=== PATIENT | male | born 1945 | race Caucasian/White ===

== ENCOUNTER 2017-08-04 21:06 | Inpatient (IN) ==
[2017-08-04] MEDS ORDERED: fentaNYL 100 MCG/2 ML VIAL IV STA (21:32)
[2017-08-04] MEDS ORDERED: ONDANSETRON 4 MG/2 ML VIAL IV STA (21:32)
[2017-08-04] MEDS ORDERED: ONDANSETRON 4 MG/2 ML VIAL IV PRN (22:58)
[2017-08-04] MEDS ORDERED: KETOROLAC 10 MG TABLET PO PRN (23:37)
[2017-08-04] MEDS ORDERED: fentaNYL 100 MCG/2 ML VIAL IV PRN (23:37)
[2017-08-04] MEDS ORDERED: tiZANidine 4 MG TABLET PO PRN (23:37)
[2017-08-05] MEDS: SODIUM CHLORIDE 0.9% 1,000 ML IV SCH ×2 (01:14→18:36)
[2017-08-05] MEDS: LEVOFLOXACIN INJ 500 MG in PREMIX 1 EACH IV SCH (01:15)
[2017-08-05 04:42] LABS: Basophils % 0.8 % (0.0-0.8); Eosinophils # 0.3 10*3/uL (0.0-0.87); Eosinophils % 4.9 % (0.00-10.9); Hematocrit 26.5 VOL% (42.0-52.0); Immature Granulocytes % 0.4 %; Immature Granulocytes Absolute 0.02 #; Lymphocytes # 1.4 10*3/uL (1.4-4.0); Lymphocytes % 26.8 % (21.2-54.2); Mean Corpuscular HGB Conc 29.4 GM/DL (32-36); Mean Corpuscular Hemoglobin 22 PG (27-34); Mean Corpuscular Volume 75.7 FL (87-102); Monocytes # 0.5 10*3/uL (0.11-0.8); Monocytes % 10.2 % (1.7-12.7); Neutrophils % 56.9 % (38.7-73.9); Platelet Count 207 T/CUMM (130-400); Red Cell Distribution Width 16.2 % (9.3-17.3); White Blood Count 5.3 T/CUMM (4-12)
[2017-08-05 04:50] LABS: Hemoglobin 7.8 GM/DL (14.0-18.0)
[2017-08-05 05:12] LABS: Hypochromasia 1+; Ovalocytes Slight; Platelet Estimate Adequate
[2017-08-05 05:22] LABS: Albumin 2.9 G/DL (3.4-5.0); Bilirubin,Total 0.5 MG/DL (0.2-1.0); Calcium 8.2 MG/DL (8.5-10.1); Osmolality,Calculated 286.8 MOS/KG (273-304); Potassium 4.1 MMOL/L (3.5-5.1); Total Protein 5.8 G/DL (6.4-8.3)
[2017-08-05 05:24] LABS: Ferritin 6.6 ng/ml (26-388); Risk Ratio 1.93
[2017-08-05 05:33] LABS: Folate 19.2 NG/ML (5.4-24.0); Vitamin B12 427 PG/ML (211-911)
[2017-08-05 06:28] LABS: Sedimentation Rate-Westergren 55 MM/HR (0-20)
[2017-08-05] MEDS: PANTOPRAZOLE 40 MG TABLET PO SCH (10:30)
[2017-08-05] MEDS: ATORVASTATIN 40 MG TABLET PO SCH (10:30)
[2017-08-05 10:55] LABS: Hemoglobin A1 (Alkaline) 97.7 % (96.5-98.5); Hemoglobin A2 (Alkaline) 2.3 % (1.5-3.5)
[2017-08-05] MEDS: HYDROmorphone 2 MG/1 ML VIAL IV PRN ×2 (16:52→21:11)
[2017-08-05] MEDS: ZALEPLON 5 MG CAPSULE PO PRN (21:12)
[2017-08-06] MEDS: LEVOFLOXACIN INJ 500 MG in PREMIX 1 EACH IV SCH ×2 (00:07→23:12)
[2017-08-06] MEDS: HYDROmorphone 2 MG/1 ML VIAL IV PRN ×2 (01:21→20:49)
[2017-08-06] MEDS: hydrALAZINE 20 MG/1 ML VIAL IV PRN ×2 (04:31→21:19)
[2017-08-06 05:16] LABS: Basophils % 0.4 % (0.0-0.8); Eosinophils # 0.3 10*3/uL (0.0-0.87); Eosinophils % 3.8 % (0.00-10.9); Hematocrit 27.9 VOL% (42.0-52.0); Hemoglobin 8.2 GM/DL (14.0-18.0); Immature Granulocytes % 0.4 %; Immature Granulocytes Absolute 0.03 #; Lymphocytes # 1.3 10*3/uL (1.4-4.0); Lymphocytes % 18.5 % (21.2-54.2); Mean Corpuscular HGB Conc 29.4 GM/DL (32-36); Mean Corpuscular Hemoglobin 22 PG (27-34); Mean Corpuscular Volume 75.6 FL (87-102); Mean Platelet Volume 8.8 FL (9.6-12.0); Monocytes # 0.6 10*3/uL (0.11-0.8); Monocytes % 7.9 % (1.7-12.7); Neutrophils # 4.9 10*3/uL (1.4-7.4); Platelet Count 237 T/CUMM (130-400); Red Blood Count 3.69 MC/CUMM (3.8-5.5); Red Cell Distribution Width 16.1 % (9.3-17.3); White Blood Count 7.1 T/CUMM (4-12)
[2017-08-06 06:03] LABS: Albumin 3.1 G/DL (3.4-5.0); Bilirubin,Total 0.7 MG/DL (0.2-1.0); Calcium 8.1 MG/DL (8.5-10.1); Osmolality,Calculated 283.1 MOS/KG (273-304); Potassium 3.9 MMOL/L (3.5-5.1); Total Protein 6.2 G/DL (6.4-8.3)
[2017-08-06] MEDS: ATORVASTATIN 40 MG TABLET PO SCH (09:26)
[2017-08-06] MEDS: PANTOPRAZOLE 40 MG TABLET PO SCH (09:27)
[2017-08-06] MEDS: SODIUM CHLORIDE 0.9% 1,000 ML IV SCH ×3 (09:27→21:20)
[2017-08-06] MEDS: ZALEPLON 5 MG CAPSULE PO PRN (20:49)
[2017-08-07] MEDS: ATORVASTATIN 40 MG TABLET PO SCH (08:39)
[2017-08-07] MEDS: PANTOPRAZOLE 40 MG TABLET PO SCH (08:39)
[2017-08-07] MEDS: hydrALAZINE 20 MG/1 ML VIAL IV PRN ×2 (08:40→16:59)
[2017-08-07] MEDS: SODIUM CHLORIDE 0.9% 1,000 ML IV SCH ×2 (12:00→19:34)
[2017-08-07] MEDS: amLODIPine 5 MG TABLET PO SCH (16:57)
[2017-08-07] MEDS: HYDROmorphone 2 MG/1 ML VIAL IV PRN (19:52)
[2017-08-08] MEDS: LEVOFLOXACIN INJ 500 MG in PREMIX 1 EACH IV SCH (01:40)
[2017-08-08] MEDS: SODIUM CHLORIDE 0.9% 1,000 ML IV SCH ×3 (02:38→21:50)
[2017-08-08 05:31] LABS: Basophils % 0.4 % (0.0-0.8); Eosinophils # 0.3 10*3/uL (0.0-0.87); Eosinophils % 4.3 % (0.00-10.9); Hematocrit 27.2 VOL% (42.0-52.0); Hemoglobin 8.3 GM/DL (14.0-18.0); Immature Granulocytes % 0.6 %; Immature Granulocytes Absolute 0.04 #; Lymphocytes # 1.2 10*3/uL (1.4-4.0); Lymphocytes % 17.8 % (21.2-54.2); Mean Corpuscular HGB Conc 30.5 GM/DL (32-36); Mean Corpuscular Hemoglobin 22 PG (27-34); Mean Corpuscular Volume 72.9 FL (87-102); Monocytes # 0.7 10*3/uL (0.11-0.8); Neutrophils # 4.5 10*3/uL (1.4-7.4); Neutrophils % 65.9 % (38.7-73.9); Platelet Count 200 T/CUMM (130-400); Red Blood Count 3.73 MC/CUMM (3.8-5.5); Red Cell Distribution Width 16.7 % (9.3-17.3); White Blood Count 6.8 T/CUMM (4-12)
[2017-08-08 06:02] LABS: Calcium 8.1 MG/DL (8.5-10.1); Osmolality,Calculated 278.3 MOS/KG (273-304); Potassium 3.8 MMOL/L (3.5-5.1)
[2017-08-08] MEDS: ATORVASTATIN 40 MG TABLET PO SCH (08:43)
[2017-08-08] MEDS: PANTOPRAZOLE 40 MG TABLET PO SCH ×3 (08:44→21:23)
[2017-08-08] MEDS: amLODIPine 5 MG TABLET PO SCH ×3 (08:44→21:23)
[2017-08-08] MEDS ORDERED: LIDOCAINE 100 MG/5 ML SYRINGE ONE (12:00)
[2017-08-08] MEDS ORDERED: PROPOFOL 200 MG/20 ML VIAL IV ONE (12:00)
[2017-08-09] MEDS: LEVOFLOXACIN INJ 500 MG in PREMIX 1 EACH IV SCH (01:19)
[2017-08-09] MEDS: hydrALAZINE 20 MG/1 ML VIAL IV PRN (02:00)
[2017-08-09 05:01] LABS: Basophils % 0.4 % (0.0-0.8); Eosinophils # 0.2 10*3/uL (0.0-0.87); Eosinophils % 2.6 % (0.00-10.9); Hematocrit 28.7 VOL% (42.0-52.0); Hemoglobin 8.7 GM/DL (14.0-18.0); Immature Granulocytes % 0.9 %; Immature Granulocytes Absolute 0.07 #; Lymphocytes # 0.7 10*3/uL (1.4-4.0); Mean Corpuscular HGB Conc 30.3 GM/DL (32-36); Mean Corpuscular Hemoglobin 22 PG (27-34); Mean Corpuscular Volume 71.8 FL (87-102); Mean Platelet Volume 8.8 FL (9.6-12.0); Monocytes # 0.7 10*3/uL (0.11-0.8); Monocytes % 8.9 % (1.7-12.7); Neutrophils # 5.7 10*3/uL (1.4-7.4); Neutrophils % 77.2 % (38.7-73.9); Platelet Count 223 T/CUMM (130-400); Red Cell Distribution Width 16.8 % (9.3-17.3); White Blood Count 7.4 T/CUMM (4-12)
[2017-08-09] MEDS ORDERED: ACETAMINOPHEN 325 MG TABLET PO PRN (05:13)
[2017-08-09 05:33] LABS: Calcium 8.2 MG/DL (8.5-10.1); Osmolality,Calculated 275.5 MOS/KG (273-304); Potassium 3.6 MMOL/L (3.5-5.1)
[2017-08-09] MEDS: PANTOPRAZOLE 40 MG TABLET PO SCH ×3 (08:52→20:44)
[2017-08-09] MEDS: ATORVASTATIN 40 MG TABLET PO SCH (08:52)
[2017-08-09] MEDS: amLODIPine 5 MG TABLET PO SCH ×2 (08:52→20:44)
[2017-08-09] MEDS: SODIUM CHLORIDE 0.9% 1,000 ML IV SCH ×4 (08:53→23:15)
[2017-08-10] MEDS: LEVOFLOXACIN INJ 500 MG in PREMIX 1 EACH IV SCH (01:09)
[2017-08-10] MEDS: hydrALAZINE 20 MG/1 ML VIAL IV PRN (06:42)
[2017-08-10] MEDS: PANTOPRAZOLE 40 MG TABLET PO SCH ×2 (08:06→21:39)
[2017-08-10] MEDS: ATORVASTATIN 40 MG TABLET PO SCH (08:06)
[2017-08-10] MEDS: amLODIPine 5 MG TABLET PO SCH ×2 (08:06→21:39)
[2017-08-10] MEDS: SODIUM CHLORIDE 0.9% 1,000 ML IV SCH ×2 (10:46→14:31)
[2017-08-10] MEDS: TAMSULOSIN 0.4 MG CAPSULE PO SCH (12:58)
[2017-08-10] MEDS: DUTASTERIDE 0.5 MG CAPSULE PO SCH (12:58)
[2017-08-10 13:15] LABS: Apearance,Urine CLEAR (Clear); Bilirubin,Urine Negative (Negative); Blood, Urine Negative (Negative); Glucose,Urine (UA) Negative (Negative); Ketones,Urine Negative (Negative); Mucus,Urine Occasional /LPF (Occasional); Nitrite,Urine Negative (Negative); Protein,Urine Negative; RBC,Urine 1 /HPF (0-4); Squamous Epithelial Cell,Urine Occasional /HPF (0-10); Urine Color Straw (Yellow); Urine Specific Gravity 1.005 (1.001-1.035); Urine Urobilinogen < 2.0 EU/DL (0.2-1.0)
[2017-08-11] MEDS: LEVOFLOXACIN INJ 500 MG in PREMIX 1 EACH IV SCH (01:01)
[2017-08-11] MEDS: ATORVASTATIN 40 MG TABLET PO SCH (09:38)
[2017-08-11] MEDS: DUTASTERIDE 0.5 MG CAPSULE PO SCH (09:38)
[2017-08-11] MEDS: amLODIPine 5 MG TABLET PO SCH (09:39)
[2017-08-11] MEDS: PANTOPRAZOLE 40 MG TABLET PO SCH (09:39)
[2017-08-11] MEDS: TAMSULOSIN 0.4 MG CAPSULE PO SCH (09:39)
[2017-08-11 11:12] VITALS: BP 120/75
[2017-08-12] MEDS ORDERED: amLODIPine 10 MG TABLET PO SCH (09:00)
== END 2017-08-11 15:55 | disposition home or self-care (01) | DRG 384 ==
LOC: EDBD → EDUNIT# → N.ED 21:06 → SUATTDRO 22:58 → N.EDINP 22:58 → N.3E 23:35
PROVIDERS: ADMIT Family Medicine; ATTEND Internal Medicine

== ENCOUNTER 2017-09-01 19:34 | Inpatient (IN) ==
[2017-09-01] MEDS ORDERED: LACTATED RINGERS 1,000 ML IV ONE (21:30)
[2017-09-01] MEDS ORDERED: cefOXitin 2,000 MG in SYRINGE 1 EACH IV ONE (21:30)
[2017-09-02] MEDS ORDERED: tiZANidine 4 MG TABLET PO PRN (01:01)
[2017-09-02] MEDS ORDERED: PROMETHAZINE 25 MG/1 ML VIAL IM PRN (01:01)
[2017-09-02] MEDS ORDERED: fentaNYL 100 MCG/2 ML VIAL IV SCH (01:01)
[2017-09-02] MEDS: LACTATED RINGERS 1,000 ML IV SCH ×3 (01:10→17:19)
[2017-09-02] MEDS ORDERED: fentaNYL 100 MCG/2 ML VIAL ONE (01:14)
[2017-09-02] MEDS ORDERED: SEVOFLURANE 1 UNIT/15 MINUTE INH ONE (01:14)
[2017-09-02] MEDS ORDERED: MIDAZOLAM 2 MG/2 ML VIAL ONE (01:15)
[2017-09-02] MEDS ORDERED: ACETAMINOPHEN 1,000 MG/100 ML VIAL IV ONE (01:22)
[2017-09-02] MEDS ORDERED: SUCCINYLCHOLINE 200 MG/10 ML VIAL ONE (01:22)
[2017-09-02] MEDS ORDERED: ONDANSETRON 4 MG/2 ML VIAL ONE (01:22)
[2017-09-02] MEDS ORDERED: ROCURONIUM 100 MG/10 ML VIAL IV ONE (01:22)
[2017-09-02] MEDS ORDERED: ETOMIDATE 40 MG/20 ML VIAL IV ONE (01:22)
[2017-09-02] MEDS ORDERED: KETOROLAC 30 MG/1 ML VIAL ONE (01:22)
[2017-09-02] MEDS ORDERED: LACTATED RINGERS 2,000 ML IV ONE (01:24)
[2017-09-02] MEDS ORDERED: PHENYLEPHRINE 1 MG/10 ML SYRINGE IV ONE (01:24)
[2017-09-02] MEDS ORDERED: BUTORPHANOL 1 MG/ML VIAL IM SCH (01:30)
[2017-09-02] MEDS: KETOROLAC 15 MG/1 ML VIAL IV SCH ×2 (01:33→06:05)
[2017-09-02] MEDS: fentaNYL 100 MCG/2 ML VIAL IV SCH ×12 (01:33→23:35)
[2017-09-02] MEDS: PIPERACILLIN/TAZOBACTAM 3,375 MG in SODIUM CHLORIDE 0.9% 100 ML IV SCH ×3 (01:35→17:19)
[2017-09-02] MEDS: PROPOFOL 1,000 MG/100 ML BOTTLE IV SCH ×3 (02:00→15:49)
[2017-09-02 02:16] LABS: ABG Base Excess -1.6 MMOL/L (-2.5-2.5); ABG HCO3 22.9 MMOL/L (20-26); ABG Oxygen Saturation 96.7 % (95-100); ABG PCO2 37.5 MM HG (35-48); ABG PH 7.404 (7.35-7.45); ABG PO2 92.6 MM HG (80-95); ABG TCO2 24.1 MMOL/L (23-27)
[2017-09-02 02:16] LABS: Basophils % 0.1 % (0.0-0.8); Eosinophils % 0.2 % (0.00-10.9); Hematocrit 26.3 VOL% (42.0-52.0); Hemoglobin 7.7 GM/DL (14.0-18.0); Immature Granulocytes % 0.6 %; Lymphocytes # 1.3 10*3/uL (1.4-4.0); Lymphocytes % 7.4 % (21.2-54.2); Mean Corpuscular HGB Conc 29.3 GM/DL (32-36); Mean Corpuscular Hemoglobin 21 PG (27-34); Mean Corpuscular Volume 73.1 FL (87-102); Monocytes # 0.6 10*3/uL (0.11-0.8); Monocytes % 3.5 % (1.7-12.7); Neutrophils % 88.2 % (38.7-73.9); Platelet Count 204 T/CUMM (130-400); Red Cell Distribution Width 17.9 % (9.3-17.3)
[2017-09-02 02:42] LABS: Calcium 7.4 MG/DL (8.5-10.1); Osmolality,Calculated 279.5 MOS/KG (273-304); Potassium 4.5 MMOL/L (3.5-5.1)
[2017-09-02] MEDS ORDERED: SODIUM CHLORIDE 0.9% 1,000 ML IV PRN ×2 (03:07→12:35)
[2017-09-02] MEDS ORDERED: SODIUM CHLORIDE 0.9% 1,000 ML IV ONE (03:15)
[2017-09-02 03:24] LABS: Calcium 7.5 MG/DL (8.5-10.1); Osmolality,Calculated 279.5 MOS/KG (273-304); Potassium 4.4 MMOL/L (3.5-5.1)
[2017-09-02 03:45] LABS: Band Neutrophils 30 % (0-10); Lymphocytes 10 % (20-55); Segmented Neutrophils 59 % (50-85); Total Cells Counted 100
[2017-09-02 03:46] LABS: Anisocytosis 1+; Hypochromasia 1+
[2017-09-02] MEDS ORDERED: PHENYLEPHRINE DRIP 40 MG/250 ML PREMIX IV PRN (04:01)
[2017-09-02] MEDS ORDERED: NOREPINEPHRINE 8 MG in SODIUM CHLORIDE 0.9% 242 ML IV PRN (06:06)
[2017-09-02] MEDS ORDERED: NOREPINEPHRINE 4 MG/4 ML VIAL IV ONE ×2 (06:08)
[2017-09-02] MEDS: ALBUMIN 25% 12.5 GM in PREMIX 1 EACH IV SCH ×3 (06:22→21:54)
[2017-09-02] MEDS: TAMSULOSIN 0.4 MG CAPSULE PO SCH (10:18)
[2017-09-02] MEDS: DUTASTERIDE 0.5 MG CAPSULE PO SCH (10:18)
[2017-09-02] MEDS: PANTOPRAZOLE 40 MG VIAL IV SCH (10:19)
[2017-09-02] MEDS: HALOPERIDOL 5 MG/ML AMP IV SCH ×2 (10:20→21:54)
[2017-09-02 10:43] LABS: Hemoglobin 8.3 GM/DL (14.0-18.0)
[2017-09-02 18:39] LABS: Hemoglobin 9.6 GM/DL (14.0-18.0)
[2017-09-02] MEDS: ATORVASTATIN 40 MG TABLET PO SCH (21:54)
[2017-09-02] MEDS ORDERED: ENOXAPARIN 40 MG/0.4 ML SYRINGE SUBCUT SCH (22:00)
[2017-09-02 22:31] LABS: Hematocrit 28.4 VOL% (42.0-52.0); Hemoglobin 8.8 GM/DL (14.0-18.0)
[2017-09-03] MEDS: PIPERACILLIN/TAZOBACTAM 3,375 MG in SODIUM CHLORIDE 0.9% 100 ML IV SCH ×3 (01:03→17:20)
[2017-09-03] MEDS: LACTATED RINGERS 1,000 ML IV SCH ×2 (01:19→09:52)
[2017-09-03] MEDS: fentaNYL 100 MCG/2 ML VIAL IV SCH ×4 (01:20→07:28)
[2017-09-03] MEDS: PROPOFOL 1,000 MG/100 ML BOTTLE IV SCH ×3 (02:00→19:56)
[2017-09-03] MEDS ORDERED: DEXTROSE 50% 25 GM/50 ML VIAL IV PRN ×2 (03:33→12:28)
[2017-09-03 04:06] LABS: ABG Base Excess -2.6 MMOL/L (-2.5-2.5); ABG HCO3 22.3 MMOL/L (20-26); ABG Oxygen Saturation 97.4 % (95-100); ABG PCO2 38.5 MM HG (35-48); ABG PO2 108.2 MM HG (80-95); ABG TCO2 23.4 MMOL/L (23-27)
[2017-09-03 04:25] LABS: Basophils % 0.3 % (0.0-0.8); Eosinophils # 0.4 10*3/uL (0.0-0.87); Eosinophils % 3.1 % (0.00-10.9); Hemoglobin 8.8 GM/DL (14.0-18.0); Immature Granulocytes % 0.8 %; Immature Granulocytes Absolute 0.09 #; Lymphocytes # 0.6 10*3/uL (1.4-4.0); Mean Corpuscular HGB Conc 31.4 GM/DL (32-36); Mean Corpuscular Hemoglobin 24 PG (27-34); Mean Corpuscular Volume 75.7 FL (87-102); Mean Platelet Volume 9.2 FL (9.6-12.0); Monocytes # 0.6 10*3/uL (0.11-0.8); Monocytes % 4.8 % (1.7-12.7); Neutrophils # 10.2 10*3/uL (1.4-7.4); Platelet Count 134 T/CUMM (130-400); Red Cell Distribution Width 19.2 % (9.3-17.3); White Blood Count 11.8 T/CUMM (4-12)
[2017-09-03 04:45] LABS: Calcium 7.1 MG/DL (8.5-10.1); Osmolality,Calculated 282.4 MOS/KG (273-304); Potassium 3.7 MMOL/L (3.5-5.1)
[2017-09-03] MEDS ORDERED: MAGNESIUM SULF RIDER 2 GM in PREMIX 1 EACH IV PRN (04:52)
[2017-09-03] MEDS ORDERED: MAGNESIUM SULF RIDER 4 GM in PREMIX 1 EACH IV PRN (04:52)
[2017-09-03] MEDS ORDERED: POTASSIUM CHLORIDE RIDER 20 MEQ in PREMIX 1 EACH IV PRN (04:52)
[2017-09-03] MEDS ORDERED: POTASSIUM CHLORIDE RIDER 10 MEQ in PREMIX 1 EACH IV PRN (04:52)
[2017-09-03] MEDS: ALBUMIN 25% 12.5 GM in PREMIX 1 EACH IV SCH ×3 (05:33→22:10)
[2017-09-03] MEDS: DUTASTERIDE 0.5 MG CAPSULE PO SCH (09:59)
[2017-09-03] MEDS: TAMSULOSIN 0.4 MG CAPSULE PO SCH (09:59)
[2017-09-03] MEDS: HALOPERIDOL 5 MG/ML AMP IV SCH ×2 (10:00→20:33)
[2017-09-03] MEDS: PANTOPRAZOLE 40 MG VIAL IV SCH (10:02)
[2017-09-03] MEDS: DEXT 5% NACL 0.45% KCL 40 MEQ 40 MEQ/1,000 ML BAG IV SCH ×2 (12:20→20:33)
[2017-09-03] MEDS ORDERED: GLUCAGON 1 MG VIAL IM PRN (12:28)
[2017-09-03] MEDS: ONDANSETRON 4 MG/2 ML VIAL IV PRN (17:47)
[2017-09-03] MEDS: INSULIN REGULAR 100 UNIT/ML SUBCUT SCH (18:00)
[2017-09-03] MEDS: fentaNYL 100 MCG/2 ML VIAL IV PRN (20:34)
[2017-09-03] MEDS: ATORVASTATIN 40 MG TABLET PO SCH (20:35)
[2017-09-04] MEDS: fentaNYL 100 MCG/2 ML VIAL IV PRN ×6 (00:16→16:41)
[2017-09-04] MEDS: INSULIN REGULAR 100 UNIT/ML SUBCUT SCH ×3 (00:17→11:40)
[2017-09-04] MEDS: PIPERACILLIN/TAZOBACTAM 3,375 MG in SODIUM CHLORIDE 0.9% 100 ML IV SCH ×3 (00:20→18:04)
[2017-09-04 03:52] LABS: Basophils % 0.4 % (0.0-0.8); Eosinophils # 0.5 10*3/uL (0.0-0.87); Eosinophils % 4.4 % (0.00-10.9); Hematocrit 29.3 VOL% (42.0-52.0); Hemoglobin 8.8 GM/DL (14.0-18.0); Immature Granulocytes % 0.8 %; Immature Granulocytes Absolute 0.08 #; Lymphocytes # 0.7 10*3/uL (1.4-4.0); Lymphocytes % 6.2 % (21.2-54.2); Mean Corpuscular Hemoglobin 24 PG (27-34); Mean Corpuscular Volume 78.1 FL (87-102); Mean Platelet Volume 8.9 FL (9.6-12.0); Monocytes # 0.8 10*3/uL (0.11-0.8); Monocytes % 7.5 % (1.7-12.7); Neutrophils # 8.6 10*3/uL (1.4-7.4); Neutrophils % 80.7 % (38.7-73.9); Platelet Count 144 T/CUMM (130-400); Red Blood Count 3.75 MC/CUMM (3.8-5.5); White Blood Count 10.6 T/CUMM (4-12)
[2017-09-04 03:59] LABS: ABG Base Excess -2.9 MMOL/L (-2.5-2.5); ABG Oxygen Saturation 98.3 % (95-100); ABG PCO2 39.9 MM HG (35-48); ABG PH 7.356 (7.35-7.45); ABG TCO2 20.7 MMOL/L (23-27)
[2017-09-04 04:20] LABS: Band Neutrophils 14 % (0-10); Eosinophils 8 % (0-10); Lymphocytes 10 % (20-55); Segmented Neutrophils 65 % (50-85); Total Cells Counted 100
[2017-09-04 04:21] LABS: Acanthocytes 1+; Anisocytosis 1+; Hypochromasia 1+; Ovalocytes 1+; Poikilocytosis 2+
[2017-09-04] MEDS: DEXT 5% NACL 0.45% KCL 40 MEQ 40 MEQ/1,000 ML BAG IV SCH ×3 (04:45→23:06)
[2017-09-04 04:50] LABS: Calcium 7.6 MG/DL (8.5-10.1); Potassium 4.5 MMOL/L (3.5-5.1)
[2017-09-04] MEDS: ALBUMIN 25% 12.5 GM in PREMIX 1 EACH IV SCH ×3 (05:33→23:00)
[2017-09-04] MEDS ORDERED: ALBUTEROL/IPRATROPIUM 3 ML NEB RESP TX PRN (08:15)
[2017-09-04 08:58] LABS: ABG Base Excess -2.4 MMOL/L (-2.5-2.5); ABG HCO3 22.4 MMOL/L (20-26); ABG Oxygen Saturation 93.4 % (95-100); ABG PCO2 38.5 MM HG (35-48); ABG PH 7.375 (7.35-7.45); ABG PO2 67.5 MM HG (80-95); ABG TCO2 20.7 MMOL/L (23-27)
[2017-09-04] MEDS: HALOPERIDOL 5 MG/ML AMP IV SCH ×2 (10:12→21:04)
[2017-09-04] MEDS: PANTOPRAZOLE 40 MG VIAL IV SCH (10:20)
[2017-09-04] MEDS: TAMSULOSIN 0.4 MG CAPSULE PO SCH (10:26)
[2017-09-04] MEDS: DUTASTERIDE 0.5 MG CAPSULE PO SCH (10:26)
[2017-09-04] MEDS: ENOXAPARIN 40 MG/0.4 ML SYRINGE SUBCUT SCH (10:59)
[2017-09-04] MEDS: ALBUTEROL/IPRATROPIUM 3 ML NEB RESP TX SCH ×3 (11:39→19:35)
[2017-09-04] MEDS ORDERED: fentaNYL 100 MCG/2 ML VIAL IV ONE (15:39)
[2017-09-04] MEDS ORDERED: INSULIN REGULAR 100 UNIT/ML SUBCUT SCH (16:30)
[2017-09-04] MEDS ORDERED: FUROSEMIDE 40 MG/4 ML VIAL IV ONE (16:59)
[2017-09-04] MEDS ORDERED: FUROSEMIDE 40 MG/4 ML VIAL ONE (17:02)
[2017-09-04] MEDS ORDERED: SUCCINYLCHOLINE 200 MG/10 ML VIAL ONE (17:09)
[2017-09-04] MEDS ORDERED: PROPOFOL 1,000 MG/100 ML BOTTLE IV ONE (17:10)
[2017-09-04] MEDS: PROPOFOL 1,000 MG/100 ML BOTTLE IV SCH ×2 (17:20→22:17)
[2017-09-04] MEDS ORDERED: SUCCINYLCHOLINE 200 MG/10 ML VIAL IV ONE (17:25)
[2017-09-04] MEDS ORDERED: PROPOFOL 200 MG/20 ML VIAL IV ONE (17:25)
[2017-09-04] MEDS ORDERED: ACETAMINOPHEN 325 MG/10.15 ML UDCUP PO PRN (17:57)
[2017-09-04 18:04] LABS: Basophils % 0.2 % (0.0-0.8); Eosinophils # 0.1 10*3/uL (0.0-0.87); Eosinophils % 0.9 % (0.00-10.9); Hematocrit 33.5 VOL% (42.0-52.0); Hemoglobin 10.2 GM/DL (14.0-18.0); Immature Granulocytes % 0.9 %; Immature Granulocytes Absolute 0.12 #; Lymphocytes # 0.3 10*3/uL (1.4-4.0); Lymphocytes % 2.2 % (21.2-54.2); Mean Corpuscular HGB Conc 30.4 GM/DL (32-36); Mean Corpuscular Hemoglobin 24 PG (27-34); Mean Corpuscular Volume 77.9 FL (87-102); Mean Platelet Volume 8.9 FL (9.6-12.0); Monocytes # 0.6 10*3/uL (0.11-0.8); Monocytes % 4.5 % (1.7-12.7); Neutrophils # 11.7 10*3/uL (1.4-7.4); Neutrophils % 91.3 % (38.7-73.9); Platelet Count 169 T/CUMM (130-400); Red Cell Distribution Width 20.3 % (9.3-17.3); White Blood Count 12.8 T/CUMM (4-12)
[2017-09-04 18:05] LABS: ABG Base Excess -1.7 MMOL/L (-2.5-2.5); ABG HCO3 22.5 MMOL/L (20-26); ABG Oxygen Saturation 98.1 % (95-100); ABG PCO2 36.3 MM HG (35-48); ABG PH 7.411 (7.35-7.45); ABG PO2 112.8 MM HG (80-95); ABG TCO2 23.7 MMOL/L (23-27)
[2017-09-04 18:29] LABS: Band Neutrophils 1 % (0-10); Lymphocytes 2 % (20-55); Segmented Neutrophils 93 % (50-85); Total Cells Counted 100
[2017-09-04 18:30] LABS: Elliptocytes Few; Platelet Estimate Adequate; Target Cells Few
[2017-09-04 18:35] LABS: Albumin 2.8 G/DL (3.4-5.0); Bilirubin,Total 1.3 MG/DL (0.2-1.0); Calcium 7.8 MG/DL (8.5-10.1); Osmolality,Calculated 282.1 MOS/KG (273-304); Potassium 4.5 MMOL/L (3.5-5.1); Total Protein 5.6 G/DL (6.4-8.3)
[2017-09-04] MEDS: ATORVASTATIN 40 MG TABLET PO SCH (22:06)
[2017-09-05] MEDS: INSULIN REGULAR 100 UNIT/ML SUBCUT SCH ×4 (00:06→17:53)
[2017-09-05] MEDS: PIPERACILLIN/TAZOBACTAM 3,375 MG in SODIUM CHLORIDE 0.9% 100 ML IV SCH ×3 (00:25→17:22)
[2017-09-05] MEDS: fentaNYL 100 MCG/2 ML VIAL IV PRN ×2 (01:30→04:00)
[2017-09-05] MEDS: PROPOFOL 1,000 MG/100 ML BOTTLE IV SCH ×5 (02:00→23:11)
[2017-09-05 03:38] LABS: ABG Base Excess -0.7 MMOL/L (-2.5-2.5); ABG HCO3 23.8 MMOL/L (20-26); ABG Oxygen Saturation 99.2 % (95-100); ABG PCO2 41.3 MM HG (35-48); ABG PH 7.378 (7.35-7.45); ABG TCO2 22.6 MMOL/L (23-27)
[2017-09-05 04:59] LABS: Basophils # 0.1 10*3/uL (0.0-0.2); Basophils % 0.4 % (0.0-0.8); Eosinophils # 0.4 10*3/uL (0.0-0.87); Hematocrit 28.7 VOL% (42.0-52.0); Hemoglobin 8.5 GM/DL (14.0-18.0); Immature Granulocytes % 0.8 %; Immature Granulocytes Absolute 0.11 #; Lymphocytes # 0.7 10*3/uL (1.4-4.0); Mean Corpuscular HGB Conc 29.6 GM/DL (32-36); Mean Corpuscular Hemoglobin 23 PG (27-34); Mean Corpuscular Volume 78.4 FL (87-102); Mean Platelet Volume 9.4 FL (9.6-12.0); Monocytes % 6.9 % (1.7-12.7); Neutrophils % 83.9 % (38.7-73.9); Platelet Count 151 T/CUMM (130-400); Red Blood Count 3.66 MC/CUMM (3.8-5.5); Red Cell Distribution Width 20.5 % (9.3-17.3); White Blood Count 14.3 T/CUMM (4-12)
[2017-09-05 05:27] LABS: Band Neutrophils 1 % (0-10); Eosinophils 1 % (0-10); Hypochromasia 1+; Lymphocytes 1 % (20-55); Platelet Estimate Normal; Segmented Neutrophils 92 % (50-85); Total Cells Counted 100
[2017-09-05 05:34] LABS: Calcium 7.9 MG/DL (8.5-10.1); Osmolality,Calculated 284.8 MOS/KG (273-304); Potassium 4.5 MMOL/L (3.5-5.1); Prealbumin 6.7 MG/DL (20-40)
[2017-09-05] MEDS ORDERED: FUROSEMIDE 40 MG/4 ML VIAL IV ONE (06:44)
[2017-09-05] MEDS: CLINDAMYCIN INJ 600 MG in PREMIX 1 EACH IV SCH ×3 (07:22→23:09)
[2017-09-05] MEDS: ALBUTEROL/IPRATROPIUM 3 ML NEB RESP TX SCH ×4 (07:33→19:18)
[2017-09-05] MEDS: TAMSULOSIN 0.4 MG CAPSULE PO SCH ×2 (08:42→08:55)
[2017-09-05] MEDS: DUTASTERIDE 0.5 MG CAPSULE PO SCH ×2 (08:42→08:54)
[2017-09-05] MEDS: PANTOPRAZOLE 40 MG VIAL IV SCH (08:42)
[2017-09-05] MEDS: HALOPERIDOL 5 MG/ML AMP IV SCH ×2 (08:43→21:26)
[2017-09-05] MEDS: ENOXAPARIN 40 MG/0.4 ML SYRINGE SUBCUT SCH (12:40)
[2017-09-05] MEDS: ATORVASTATIN 40 MG TABLET PO SCH (21:26)
[2017-09-06] MEDS: PIPERACILLIN/TAZOBACTAM 3,375 MG in SODIUM CHLORIDE 0.9% 100 ML IV SCH ×3 (01:41→16:55)
[2017-09-06] MEDS: PROPOFOL 1,000 MG/100 ML BOTTLE IV SCH (04:08)
[2017-09-06 04:30] LABS: Allen Test Positive; Pt O2 Delivery Device Ventilator
[2017-09-06 04:31] LABS: ABG HCO3 26.2 MMOL/L (20-26); ABG Oxygen Saturation 95.9 % (95-100); ABG PCO2 39.3 MM HG (35-48); ABG PH 7.442 (7.35-7.45); ABG PO2 85.6 MM HG (80-95); ABG TCO2 27.4 MMOL/L (23-27)
[2017-09-06 04:44] LABS: Basophils % 0.4 % (0.0-0.8); Eosinophils # 0.7 10*3/uL (0.0-0.87); Eosinophils % 8.2 % (0.00-10.9); Hematocrit 28.7 VOL% (42.0-52.0); Hemoglobin 8.8 GM/DL (14.0-18.0); Immature Granulocytes % 0.9 %; Immature Granulocytes Absolute 0.07 #; Lymphocytes # 0.5 10*3/uL (1.4-4.0); Lymphocytes % 6.1 % (21.2-54.2); Mean Corpuscular HGB Conc 30.7 GM/DL (32-36); Mean Corpuscular Hemoglobin 24 PG (27-34); Mean Corpuscular Volume 77.4 FL (87-102); Monocytes # 0.8 10*3/uL (0.11-0.8); Monocytes % 10.2 % (1.7-12.7); Neutrophils # 5.9 10*3/uL (1.4-7.4); Neutrophils % 74.2 % (38.7-73.9); Platelet Count 157 T/CUMM (130-400); Red Blood Count 3.71 MC/CUMM (3.8-5.5); White Blood Count 7.9 T/CUMM (4-12)
[2017-09-06 05:15] LABS: Calcium 7.5 MG/DL (8.5-10.1); Osmolality,Calculated 286.8 MOS/KG (273-304); Potassium 3.9 MMOL/L (3.5-5.1)
[2017-09-06] MEDS: INSULIN REGULAR 100 UNIT/ML SUBCUT SCH ×5 (06:40→23:47)
[2017-09-06] MEDS: ALBUTEROL/IPRATROPIUM 3 ML NEB RESP TX SCH ×4 (07:00→20:24)
[2017-09-06] MEDS: CLINDAMYCIN INJ 600 MG in PREMIX 1 EACH IV SCH ×3 (07:23→23:47)
[2017-09-06] MEDS: HALOPERIDOL 5 MG/ML AMP IV SCH ×2 (08:34→21:27)
[2017-09-06] MEDS: PANTOPRAZOLE 40 MG VIAL IV SCH (08:46)
[2017-09-06 08:52] LABS: ABG Base Excess 2.3 MMOL/L (-2.5-2.5); ABG HCO3 26.5 MMOL/L (20-26); ABG Oxygen Saturation 92.3 % (95-100); ABG PCO2 39.4 MM HG (35-48); ABG PH 7.445 (7.35-7.45); ABG PO2 67.2 MM HG (80-95); ABG TCO2 27.7 MMOL/L (23-27); Allen Test Positive; Pt O2 Delivery Device Ventilator
[2017-09-06] MEDS: ONDANSETRON 4 MG/2 ML VIAL IV PRN (08:55)
[2017-09-06 10:11] LABS: ABG Base Excess 2.9 MMOL/L (-2.5-2.5); ABG HCO3 26.9 MMOL/L (20-26); ABG Oxygen Saturation 91.4 % (95-100); ABG PCO2 39.6 MM HG (35-48); ABG PH 7.444 (7.35-7.45); ABG PO2 60.5 MM HG (80-95); ABG TCO2 24.8 MMOL/L (23-27)
[2017-09-06] MEDS: DUTASTERIDE 0.5 MG CAPSULE PO SCH (12:54)
[2017-09-06] MEDS: TAMSULOSIN 0.4 MG CAPSULE PO SCH (12:55)
[2017-09-06] MEDS: ENOXAPARIN 40 MG/0.4 ML SYRINGE SUBCUT SCH (12:58)
[2017-09-06] MEDS: fentaNYL 100 MCG/2 ML VIAL IV PRN (16:52)
[2017-09-06] MEDS: ATORVASTATIN 40 MG TABLET PO SCH (21:27)
[2017-09-07] MEDS: PIPERACILLIN/TAZOBACTAM 3,375 MG in SODIUM CHLORIDE 0.9% 100 ML IV SCH ×3 (00:04→19:13)
[2017-09-07 05:40] LABS: Basophils # 0.1 10*3/uL (0.0-0.2); Basophils % 0.5 % (0.0-0.8); Eosinophils # 0.3 10*3/uL (0.0-0.87); Eosinophils % 3.5 % (0.00-10.9); Hematocrit 30.5 VOL% (42.0-52.0); Hemoglobin 9.5 GM/DL (14.0-18.0); Immature Granulocytes % 2.1 %; Lymphocytes # 0.6 10*3/uL (1.4-4.0); Lymphocytes % 6.3 % (21.2-54.2); Mean Corpuscular HGB Conc 31.1 GM/DL (32-36); Mean Corpuscular Hemoglobin 23 PG (27-34); Mean Corpuscular Volume 75.1 FL (87-102); Mean Platelet Volume 8.8 FL (9.6-12.0); Monocytes # 0.8 10*3/uL (0.11-0.8); Monocytes % 8.9 % (1.7-12.7); Neutrophils # 7.5 10*3/uL (1.4-7.4); Neutrophils % 78.7 % (38.7-73.9); Platelet Count 197 T/CUMM (130-400); Red Blood Count 4.06 MC/CUMM (3.8-5.5); Red Cell Distribution Width 21.2 % (9.3-17.3); White Blood Count 9.5 T/CUMM (4-12)
[2017-09-07] MEDS: INSULIN REGULAR 100 UNIT/ML SUBCUT SCH ×3 (06:21→18:00)
[2017-09-07 06:31] LABS: Calcium 7.5 MG/DL (8.5-10.1); Osmolality,Calculated 287.7 MOS/KG (273-304); Potassium 4.1 MMOL/L (3.5-5.1)
[2017-09-07] MEDS ORDERED: FUROSEMIDE 40 MG/4 ML VIAL IV ONE (07:13)
[2017-09-07] MEDS: CLINDAMYCIN INJ 600 MG in PREMIX 1 EACH IV SCH ×3 (07:50→23:44)
[2017-09-07] MEDS: ALBUTEROL/IPRATROPIUM 3 ML NEB RESP TX SCH ×4 (08:18→19:45)
[2017-09-07 08:28] LABS: Apearance,Urine CLEAR (Clear); Bilirubin,Urine Negative (Negative); Blood, Urine Moderate mg/dL (Negative); Glucose,Urine (UA) Negative (Negative); Ketones,Urine Negative (Negative); Nitrite,Urine Negative (Negative); Protein,Urine Negative; RBC,Urine 34 /HPF (0-4); Urine Color Yellow (Yellow); Urine Specific Gravity 1.008 (1.001-1.035); Urine Urobilinogen < 2.0 EU/DL (0.2-1.0); WBC,Urine <1 /HPF (0-6)
[2017-09-07] MEDS: PANTOPRAZOLE 40 MG VIAL IV SCH (08:30)
[2017-09-07] MEDS: TAMSULOSIN 0.4 MG CAPSULE PO SCH (08:40)
[2017-09-07] MEDS: DUTASTERIDE 0.5 MG CAPSULE PO SCH (08:40)
[2017-09-07] MEDS: fentaNYL 100 MCG/2 ML VIAL IV PRN (11:40)
[2017-09-07] MEDS: ENOXAPARIN 40 MG/0.4 ML SYRINGE SUBCUT SCH (11:40)
[2017-09-07] MEDS: ATORVASTATIN 40 MG TABLET PO SCH (21:14)
[2017-09-08] MEDS: PIPERACILLIN/TAZOBACTAM 3,375 MG in SODIUM CHLORIDE 0.9% 100 ML IV SCH ×3 (01:00→18:20)
[2017-09-08 03:41] LABS: ABG Base Excess 4.5 MMOL/L (-2.5-2.5); ABG HCO3 28.4 MMOL/L (20-26); ABG PCO2 41.3 MM HG (35-48); ABG PH 7.452 (7.35-7.45); ABG PO2 68.1 MM HG (80-95); ABG TCO2 26.2 MMOL/L (23-27); Allen Test Positive; Pt O2 Delivery Device Other
[2017-09-08 03:51] LABS: Basophils # 0.1 10*3/uL (0.0-0.2); Basophils % 0.6 % (0.0-0.8); Eosinophils # 0.6 10*3/uL (0.0-0.87); Hematocrit 31.9 VOL% (42.0-52.0); Hemoglobin 9.7 GM/DL (14.0-18.0); Immature Granulocytes % 4.6 %; Immature Granulocytes Absolute 0.45 #; Lymphocytes % 10.2 % (21.2-54.2); Mean Corpuscular HGB Conc 30.4 GM/DL (32-36); Mean Corpuscular Hemoglobin 23 PG (27-34); Mean Corpuscular Volume 76.7 FL (87-102); Mean Platelet Volume 8.7 FL (9.6-12.0); Monocytes # 0.8 10*3/uL (0.11-0.8); Monocytes % 8.4 % (1.7-12.7); Neutrophils # 6.8 10*3/uL (1.4-7.4); Neutrophils % 70.2 % (38.7-73.9); Platelet Count 208 T/CUMM (130-400); Red Blood Count 4.16 MC/CUMM (3.8-5.5); Red Cell Distribution Width 20.8 % (9.3-17.3); White Blood Count 9.7 T/CUMM (4-12)
[2017-09-08 04:29] LABS: Calcium 7.5 MG/DL (8.5-10.1); Osmolality,Calculated 280.3 MOS/KG (273-304); Potassium 3.9 MMOL/L (3.5-5.1)
[2017-09-08] MEDS: INSULIN REGULAR 100 UNIT/ML SUBCUT SCH ×2 (04:36→06:00)
[2017-09-08] MEDS: CLINDAMYCIN INJ 600 MG in PREMIX 1 EACH IV SCH ×3 (06:30→23:05)
[2017-09-08] MEDS: ALBUTEROL/IPRATROPIUM 3 ML NEB RESP TX SCH ×4 (08:05→19:13)
[2017-09-08] MEDS: DUTASTERIDE 0.5 MG CAPSULE PO SCH (08:45)
[2017-09-08] MEDS: TAMSULOSIN 0.4 MG CAPSULE PO SCH (08:45)
[2017-09-08] MEDS: PANTOPRAZOLE 40 MG VIAL IV SCH (08:45)
[2017-09-08] MEDS: ENOXAPARIN 40 MG/0.4 ML SYRINGE SUBCUT SCH (11:05)
[2017-09-08] MEDS: ATORVASTATIN 40 MG TABLET PO SCH (23:04)
[2017-09-09] MEDS: PIPERACILLIN/TAZOBACTAM 3,375 MG in SODIUM CHLORIDE 0.9% 100 ML IV SCH ×2 (00:53→10:38)
[2017-09-09] MEDS: ALBUTEROL/IPRATROPIUM 3 ML NEB RESP TX SCH ×5 (08:45→19:35)
[2017-09-09] MEDS: PANTOPRAZOLE 40 MG VIAL IV SCH (10:29)
[2017-09-09] MEDS: DUTASTERIDE 0.5 MG CAPSULE PO SCH (10:33)
[2017-09-09] MEDS: TAMSULOSIN 0.4 MG CAPSULE PO SCH (10:34)
[2017-09-09] MEDS: CLINDAMYCIN INJ 600 MG in PREMIX 1 EACH IV SCH ×3 (10:34→23:23)
[2017-09-09] MEDS: ENOXAPARIN 40 MG/0.4 ML SYRINGE SUBCUT SCH (12:48)
[2017-09-09] MEDS: fentaNYL 100 MCG/2 ML VIAL IV PRN ×2 (15:04→17:56)
[2017-09-09] MEDS: ATORVASTATIN 40 MG TABLET PO SCH (20:50)
[2017-09-10] MEDS: ALBUTEROL/IPRATROPIUM 3 ML NEB RESP TX SCH ×4 (07:03→20:03)
[2017-09-10] MEDS: CLINDAMYCIN INJ 600 MG in PREMIX 1 EACH IV SCH ×3 (10:13→23:15)
[2017-09-10] MEDS: TAMSULOSIN 0.4 MG CAPSULE PO SCH (10:14)
[2017-09-10] MEDS: DUTASTERIDE 0.5 MG CAPSULE PO SCH (10:14)
[2017-09-10] MEDS: PANTOPRAZOLE 40 MG VIAL IV SCH (10:14)
[2017-09-10] MEDS: ENOXAPARIN 40 MG/0.4 ML SYRINGE SUBCUT SCH (12:49)
[2017-09-10] MEDS: fentaNYL 100 MCG/2 ML VIAL IV PRN (13:03)
[2017-09-10] MEDS: ATORVASTATIN 40 MG TABLET PO SCH (20:47)
[2017-09-11] MEDS: ALBUTEROL/IPRATROPIUM 3 ML NEB RESP TX SCH ×4 (07:23→19:11)
[2017-09-11] MEDS: PANTOPRAZOLE 40 MG VIAL IV SCH (09:17)
[2017-09-11] MEDS: DUTASTERIDE 0.5 MG CAPSULE PO SCH (09:17)
[2017-09-11] MEDS: TAMSULOSIN 0.4 MG CAPSULE PO SCH (09:17)
[2017-09-11] MEDS: CLINDAMYCIN INJ 600 MG in PREMIX 1 EACH IV SCH ×3 (09:17→23:10)
[2017-09-11] MEDS: ENOXAPARIN 40 MG/0.4 ML SYRINGE SUBCUT SCH (12:26)
[2017-09-11] MEDS: ATORVASTATIN 40 MG TABLET PO SCH (20:50)
[2017-09-12] MEDS: ALBUTEROL/IPRATROPIUM 3 ML NEB RESP TX SCH ×4 (07:12→19:11)
[2017-09-12 07:22] LABS: Basophils # 0.1 10*3/uL (0.0-0.2); Basophils % 0.6 % (0.0-0.8); Eosinophils # 0.6 10*3/uL (0.0-0.87); Eosinophils % 4.8 % (0.00-10.9); Hematocrit 30.9 VOL% (42.0-52.0); Hemoglobin 9.1 GM/DL (14.0-18.0); Immature Granulocytes % 1.4 %; Immature Granulocytes Absolute 0.16 #; Lymphocytes # 1.1 10*3/uL (1.4-4.0); Lymphocytes % 9.5 % (21.2-54.2); Mean Corpuscular HGB Conc 29.4 GM/DL (32-36); Mean Corpuscular Hemoglobin 23 PG (27-34); Mean Corpuscular Volume 77.3 FL (87-102); Monocytes # 0.9 10*3/uL (0.11-0.8); Monocytes % 7.5 % (1.7-12.7); Neutrophils # 8.7 10*3/uL (1.4-7.4); Neutrophils % 76.2 % (38.7-73.9); Platelet Count 343 T/CUMM (130-400); Red Cell Distribution Width 21.5 % (9.3-17.3); White Blood Count 11.5 T/CUMM (4-12)
[2017-09-12 07:54] LABS: Osmolality,Calculated 280.4 MOS/KG (273-304); Potassium 3.8 MMOL/L (3.5-5.1)
[2017-09-12] MEDS: CLINDAMYCIN INJ 600 MG in PREMIX 1 EACH IV SCH (08:48)
[2017-09-12] MEDS: DUTASTERIDE 0.5 MG CAPSULE PO SCH (09:35)
[2017-09-12] MEDS: TAMSULOSIN 0.4 MG CAPSULE PO SCH (09:39)
[2017-09-12] MEDS: PANTOPRAZOLE 40 MG VIAL IV SCH (09:39)
[2017-09-12] MEDS: ENOXAPARIN 40 MG/0.4 ML SYRINGE SUBCUT SCH (11:36)
[2017-09-12] MEDS: ATORVASTATIN 40 MG TABLET PO SCH (22:42)
[2017-09-13] MEDS: ALBUTEROL/IPRATROPIUM 3 ML NEB RESP TX SCH ×4 (07:15→19:39)
[2017-09-13] MEDS: DUTASTERIDE 0.5 MG CAPSULE PO SCH (08:27)
[2017-09-13] MEDS: TAMSULOSIN 0.4 MG CAPSULE PO SCH (08:27)
[2017-09-13] MEDS: PANTOPRAZOLE 40 MG VIAL IV SCH (08:28)
[2017-09-13] MEDS: ENOXAPARIN 40 MG/0.4 ML SYRINGE SUBCUT SCH (08:28)
[2017-09-13] MEDS: ATORVASTATIN 40 MG TABLET PO SCH (20:01)
[2017-09-14 08:06] LABS: Basophils # 0.1 10*3/uL (0.0-0.2); Basophils % 0.8 % (0.0-0.8); Eosinophils # 0.5 10*3/uL (0.0-0.87); Hematocrit 32.9 VOL% (42.0-52.0); Hemoglobin 9.9 GM/DL (14.0-18.0); Immature Granulocytes % 1.3 %; Immature Granulocytes Absolute 0.15 #; Lymphocytes % 8.3 % (21.2-54.2); Mean Corpuscular HGB Conc 30.1 GM/DL (32-36); Mean Corpuscular Hemoglobin 23 PG (27-34); Mean Corpuscular Volume 76.9 FL (87-102); Mean Platelet Volume 9.1 FL (9.6-12.0); Monocytes # 0.9 10*3/uL (0.11-0.8); Monocytes % 7.7 % (1.7-12.7); Neutrophils % 77.9 % (38.7-73.9); Platelet Count 538 T/CUMM (130-400); Red Blood Count 4.28 MC/CUMM (3.8-5.5); Red Cell Distribution Width 21.7 % (9.3-17.3); White Blood Count 11.5 T/CUMM (4-12)
[2017-09-14] MEDS: ALBUTEROL/IPRATROPIUM 3 ML NEB RESP TX SCH ×4 (08:10→19:40)
[2017-09-14 08:21] LABS: Calcium 8.3 MG/DL (8.5-10.1); Osmolality,Calculated 276.7 MOS/KG (273-304)
[2017-09-14] MEDS: PANTOPRAZOLE 40 MG VIAL IV SCH (10:35)
[2017-09-14] MEDS: ENOXAPARIN 40 MG/0.4 ML SYRINGE SUBCUT SCH (11:39)
[2017-09-14] MEDS ORDERED: KETOROLAC 15 MG/1 ML VIAL IV PRN (13:50)
[2017-09-14] MEDS: TAMSULOSIN 0.4 MG CAPSULE PO SCH (16:02)
[2017-09-14] MEDS: DUTASTERIDE 0.5 MG CAPSULE PO SCH (16:02)
[2017-09-14] MEDS: ATORVASTATIN 40 MG TABLET PO SCH (21:04)
[2017-09-15 06:01] LABS: Basophils # 0.1 10*3/uL (0.0-0.2); Basophils % 0.6 % (0.0-0.8); Eosinophils # 0.5 10*3/uL (0.0-0.87); Eosinophils % 4.1 % (0.00-10.9); Hematocrit 32.2 VOL% (42.0-52.0); Hemoglobin 10.1 GM/DL (14.0-18.0); Immature Granulocytes % 1.6 %; Immature Granulocytes Absolute 0.19 #; Lymphocytes % 7.9 % (21.2-54.2); Mean Corpuscular HGB Conc 31.4 GM/DL (32-36); Mean Corpuscular Hemoglobin 24 PG (27-34); Mean Corpuscular Volume 75.2 FL (87-102); Mean Platelet Volume 9.6 FL (9.6-12.0); Monocytes # 0.9 10*3/uL (0.11-0.8); Monocytes % 7.6 % (1.7-12.7); NRBC # 0.02 10*3/uL; Neutrophils # 9.5 10*3/uL (1.4-7.4); Neutrophils % 78.2 % (38.7-73.9); Platelet Count 544 T/CUMM (130-400); Red Blood Count 4.28 MC/CUMM (3.8-5.5); Red Cell Distribution Width 21.9 % (9.3-17.3); White Blood Count 12.1 T/CUMM (4-12)
[2017-09-15 06:02] LABS: Calcium 8.4 MG/DL (8.5-10.1); Osmolality,Calculated 273.8 MOS/KG (273-304); Potassium 4.1 MMOL/L (3.5-5.1)
[2017-09-15] MEDS: ALBUTEROL/IPRATROPIUM 3 ML NEB RESP TX SCH ×4 (07:13→19:40)
[2017-09-15] MEDS: ENOXAPARIN 40 MG/0.4 ML SYRINGE SUBCUT SCH (08:19)
[2017-09-15] MEDS: TAMSULOSIN 0.4 MG CAPSULE PO SCH (08:20)
[2017-09-15] MEDS: PANTOPRAZOLE 40 MG VIAL IV SCH (08:30)
[2017-09-15] MEDS: AMOXICILLIN/CLAV 875 MG TABLET PO SCH ×2 (08:54→20:18)
[2017-09-15] MEDS: DUTASTERIDE 0.5 MG CAPSULE PO SCH (08:54)
[2017-09-15] MEDS: ATORVASTATIN 40 MG TABLET PO SCH (20:18)
[2017-09-15 21:29] VITALS: BP 157/80
== END 2017-09-15 20:30 | disposition swing bed (61) | DRG 329 ==
LOC: EDBD → EDUNIT# → N.ED 19:34 → N.ICU 22:27 → N.2E 09-08 18:20
PROVIDERS: ADMIT Surgery; ATTEND Surgery

== ENCOUNTER 2017-09-30 13:19 | Inpatient (IN) ==
[2017-09-30] MEDS ORDERED: HYDROmorphone 2 MG/1 ML VIAL IV PRN ×2 (14:02→15:19)
[2017-09-30 14:48] LABS: Basophils # 0.1 10*3/uL (0.0-0.2); Basophils % 0.7 % (0.0-0.8); Eosinophils # 0.3 10*3/uL (0.0-0.87); Eosinophils % 3.5 % (0.00-10.9); Hemoglobin 9.1 GM/DL (14.0-18.0); Immature Granulocytes % 1.3 %; Immature Granulocytes Absolute 0.12 #; Lymphocytes # 1.2 10*3/uL (1.4-4.0); Mean Corpuscular HGB Conc 29.4 GM/DL (32-36); Mean Corpuscular Hemoglobin 23 PG (27-34); Mean Corpuscular Volume 78.7 FL (87-102); Mean Platelet Volume 8.2 FL (9.6-12.0); Monocytes # 0.7 10*3/uL (0.11-0.8); Monocytes % 7.7 % (1.7-12.7); Neutrophils # 7.1 10*3/uL (1.4-7.4); Neutrophils % 73.8 % (38.7-73.9); Platelet Count 349 T/CUMM (130-400); Red Blood Count 3.94 MC/CUMM (3.8-5.5); Red Cell Distribution Width 21.2 % (9.3-17.3); White Blood Count 9.6 T/CUMM (4-12)
[2017-09-30 14:56] LABS: Calcium 8.7 MG/DL (8.5-10.1); Osmolality,Calculated 273.7 MOS/KG (273-304); Potassium 4.3 MMOL/L (3.5-5.1)
[2017-09-30] MEDS ORDERED: SODIUM CHLORIDE 0.45% 1,000 ML IV SCH (15:00)
[2017-09-30] MEDS ORDERED: ACETAMINOPHEN 325 MG TABLET PO PRN (15:19)
[2017-09-30] MEDS ORDERED: ONDANSETRON 4 MG/2 ML VIAL IV PRN (15:19)
[2017-09-30] MEDS ORDERED: tiZANidine 4 MG TABLET PO PRN (15:22)
[2017-09-30] MEDS: PIPERACILLIN/TAZOBACTAM 3,375 MG in SODIUM CHLORIDE 0.9% 100 ML IV SCH (16:22)
[2017-09-30] MEDS: SODIUM CHLORIDE 0.9% 1,000 ML IV SCH (16:22)
[2017-09-30] MEDS: ALBUTEROL/IPRATROPIUM 3 ML NEB RESP TX SCH (19:41)
[2017-09-30] MEDS: VANCOMYCIN INJ 1,500 MG in SODIUM CHLORIDE 0.9% 500 ML IV SCH (22:02)
[2017-10-01] MEDS: PIPERACILLIN/TAZOBACTAM 3,375 MG in SODIUM CHLORIDE 0.9% 100 ML IV SCH (02:50)
[2017-10-01] MEDS: SODIUM CHLORIDE 0.9% 1,000 ML IV SCH (02:50)
[2017-10-01 06:18] LABS: Basophils # 0.1 10*3/uL (0.0-0.2); Basophils % 0.7 % (0.0-0.8); Eosinophils # 0.3 10*3/uL (0.0-0.87); Eosinophils % 3.7 % (0.00-10.9); Hematocrit 29.3 VOL% (42.0-52.0); Hemoglobin 8.8 GM/DL (14.0-18.0); Immature Granulocytes % 1.1 %; Immature Granulocytes Absolute 0.09 #; Lymphocytes # 0.9 10*3/uL (1.4-4.0); Lymphocytes % 10.4 % (21.2-54.2); Mean Corpuscular Hemoglobin 23 PG (27-34); Mean Corpuscular Volume 76.5 FL (87-102); Mean Platelet Volume 8.1 FL (9.6-12.0); Monocytes # 0.7 10*3/uL (0.11-0.8); Neutrophils # 6.4 10*3/uL (1.4-7.4); Neutrophils % 76.1 % (38.7-73.9); Platelet Count 309 T/CUMM (130-400); Red Blood Count 3.83 MC/CUMM (3.8-5.5); White Blood Count 8.4 T/CUMM (4-12)
[2017-10-01 06:45] LABS: Calcium 8.5 MG/DL (8.5-10.1); Osmolality,Calculated 275.5 MOS/KG (273-304); Potassium 4.1 MMOL/L (3.5-5.1)
[2017-10-01 07:06] LABS: Albumin 2.1 G/DL (3.4-5.0); Bilirubin,Total 0.4 MG/DL (0.2-1.0); Calcium 8.5 MG/DL (8.5-10.1); Osmolality,Calculated 275.5 MOS/KG (273-304); Potassium 4.1 MMOL/L (3.5-5.1); Total Protein 6.8 G/DL (6.4-8.3)
[2017-10-01] MEDS: ALBUTEROL/IPRATROPIUM 3 ML NEB RESP TX SCH ×2 (07:16→11:00)
[2017-10-01] MEDS ORDERED: DUTASTERIDE 0.5 MG CAPSULE PO SCH (09:00)
[2017-10-01] MEDS ORDERED: ENOXAPARIN 40 MG/0.4 ML SYRINGE SUBCUT SCH (09:00)
[2017-10-01] MEDS ORDERED: amLODIPine 10 MG TABLET PO SCH (09:00)
[2017-10-01] MEDS ORDERED: PANTOPRAZOLE 40 MG TABLET PO SCH (09:00)
[2017-10-01] MEDS ORDERED: TAMSULOSIN 0.4 MG CAPSULE PO SCH (09:00)
[2017-10-01] MEDS ORDERED: ATORVASTATIN 40 MG TABLET PO SCH (09:00)
[2017-10-01] MEDS: VANCOMYCIN INJ 1,500 MG in SODIUM CHLORIDE 0.9% 500 ML IV SCH (09:41)
[2017-10-01 12:09] VITALS: BP 123/57
== END 2017-10-01 14:10 | disposition swing bed (61) | DRG 921 ==
LOC: N.OR 13:19 → N.SDSINP 13:26 → N.2E 15:54
PROVIDERS: ADMIT Surgery; ATTEND Surgery

== ENCOUNTER 2020-07-21 11:23 | Inpatient (IN) ==
[2020-07-21 12:50] LABS: Basophils % 0.3 % (0.0-0.8); Eosinophils # 0.2 10*3/uL (0.0-0.87); Eosinophils % 2.8 % (0.00-10.9); Hematocrit 32.5 VOL% (42.0-52.0); Hemoglobin 10.2 GM/DL (14.0-18.0); Immature Granulocytes % 0.6 %; Immature Granulocytes Absolute 0.04 #; Lymphocytes # 0.8 10*3/uL (1.4-4.0); Lymphocytes % 12.2 % (21.2-54.2); Mean Corpuscular HGB Conc 31.4 GM/DL (32-36); Mean Corpuscular Volume 85.8 FL (87-102); Mean Platelet Volume 8.2 FL (9.6-12.0); Neutrophils % 77.1 % (38.7-73.9); Platelet Count 180 T/CUMM (130-400); Red Blood Count 3.79 MC/CUMM (3.8-5.5); Red Cell Distribution Width 14.9 % (9.3-17.3); White Blood Count 6.2 T/CUMM (4-12)
[2020-07-21 13:11] LABS: Calcium 8.7 MG/DL (8.5-10.1); Osmolality,Calculated 282.4 MOS/KG (273-304); Potassium 4.3 MMOL/L (3.5-5.1)
[2020-07-21] MEDS ORDERED: ACETAMINOPHEN 325 MG TABLET PO PRN (16:01)
[2020-07-21] MEDS: HYDROmorphone 2 MG/1 ML VIAL IV PRN ×2 (17:53→22:13)
[2020-07-21] MEDS: LACTATED RINGERS 1,000 ML IV SCH (17:54)
[2020-07-21] MEDS: ONDANSETRON 4 MG/2 ML VIAL IV PRN (19:28)
[2020-07-22] MEDS: LACTATED RINGERS 1,000 ML IV SCH ×4 (00:53→21:12)
[2020-07-22] MEDS: ONDANSETRON 4 MG/2 ML VIAL IV PRN (04:52)
[2020-07-22] MEDS: HYDROmorphone 2 MG/1 ML VIAL IV PRN ×6 (04:52→12:40)
[2020-07-22 05:05] LABS: Basophils % 0.5 % (0.0-0.8); Eosinophils # 0.3 10*3/uL (0.0-0.87); Eosinophils % 4.8 % (0.00-10.9); Hematocrit 33.1 VOL% (42.0-52.0); Immature Granulocytes % 0.5 %; Immature Granulocytes Absolute 0.03 #; Lymphocytes # 0.9 10*3/uL (1.4-4.0); Mean Corpuscular HGB Conc 30.2 GM/DL (32-36); Mean Corpuscular Volume 87.6 FL (87-102); Mean Platelet Volume 8.1 FL (9.6-12.0); Monocytes % 7.3 % (1.7-12.7); Neutrophils % 69.9 % (38.7-73.9); Platelet Count 172 T/CUMM (130-400); Red Blood Count 3.78 MC/CUMM (3.8-5.5); White Blood Count 5.5 T/CUMM (4-12)
[2020-07-22 05:19] LABS: Calcium 8.7 MG/DL (8.5-10.1); Osmolality,Calculated 274.7 MOS/KG (273-304); Potassium 4.4 MMOL/L (3.5-5.1)
[2020-07-22] MEDS ORDERED: LACTATED RINGERS 1,000 ML IV SCH (10:30)
[2020-07-22] MEDS ORDERED: fentaNYL 100 MCG/2 ML VIAL ONE (10:39)
[2020-07-22] MEDS ORDERED: ePHEDrine 50 MG/ML VIAL ONE (11:16)
[2020-07-22] MEDS ORDERED: TISSUE ADHESIVE 1 EACH APPLICATOR TOP ONE (11:37)
[2020-07-22] MEDS ORDERED: propofoL 200 MG/20 ML VIAL IV ONE (11:37)
[2020-07-22] MEDS ORDERED: ROCURONIUM 50 MG/5 ML VIAL IV ONE (11:37)
[2020-07-22] MEDS ORDERED: LIDOCAINE 2% 5 ML VIAL ONE (11:37)
[2020-07-22] MEDS ORDERED: SEVOFLURANE 1 UNIT/15 MINUTE INH ONE ×2 (11:37→11:43)
[2020-07-22] MEDS ORDERED: DEXAMETHASONE 4 MG/1 ML VIAL ONE (11:37)
[2020-07-22] MEDS ORDERED: GLYCOPYRROLATE 0.4 MG/2 ML VIAL ONE (11:37)
[2020-07-22] MEDS ORDERED: NEOSTIGMINE 10 MG/10 ML VIAL ONE ×2 (11:37→11:38)
[2020-07-22] MEDS ORDERED: ETOMIDATE 40 MG/20 ML VIAL IV ONE (11:37)
[2020-07-22] MEDS ORDERED: ONDANSETRON 4 MG/2 ML VIAL ONE (11:37)
[2020-07-22] MEDS ORDERED: PHENYLEPHRINE 1 MG/10 ML SYRINGE IV ONE (11:41)
[2020-07-22] MEDS: ENOXAPARIN 40 MG/0.4 ML SYRINGE SUBCUT SCH (11:42)
[2020-07-22] MEDS: PANTOPRAZOLE 40 MG TABLET PO SCH (11:43)
[2020-07-22] MEDS ORDERED: ONDANSETRON 4 MG/2 ML VIAL IV PRN ×2 (12:06→16:00)
[2020-07-22] MEDS ORDERED: PROMETHAZINE INJ 25 MG in SODIUM CHLORIDE 0.9% 50 ML IV PRN (12:06)
[2020-07-22] MEDS ORDERED: diphenhydrAMINE 50 MG/1 ML VIAL IV PRN (12:06)
[2020-07-22] MEDS ORDERED: ACETAMINOPHEN 325 MG TABLET PO PRN (16:00)
[2020-07-22] MEDS: ATORVASTATIN 40 MG TABLET PO SCH (21:12)
[2020-07-23] MEDS: LACTATED RINGERS 1,000 ML IV SCH ×5 (00:40→21:25)
[2020-07-23] MEDS: HYDROmorphone 2 MG/1 ML VIAL IV PRN ×3 (01:05→16:40)
[2020-07-23] MEDS: MAGNESIUM OXIDE 400 MG TABLET PO SCH (08:51)
[2020-07-23] MEDS: PANTOPRAZOLE 40 MG TABLET PO SCH (08:51)
[2020-07-23] MEDS: DUTASTERIDE 0.5 MG CAPSULE PO SCH (08:51)
[2020-07-23] MEDS: TAMSULOSIN 0.4 MG CAPSULE PO SCH (08:51)
[2020-07-23] MEDS: amLODIPine 10 MG TABLET PO SCH (08:51)
[2020-07-23] MEDS: ENOXAPARIN 40 MG/0.4 ML SYRINGE SUBCUT SCH (08:51)
[2020-07-23] MEDS ORDERED: PANTOPRAZOLE 40 MG TABLET PO SCH (09:00)
[2020-07-23] MEDS: ATORVASTATIN 40 MG TABLET PO SCH (21:21)
[2020-07-24] MEDS: HYDROmorphone 2 MG/1 ML VIAL IV PRN (00:13)
[2020-07-24] MEDS: LACTATED RINGERS 1,000 ML IV SCH ×2 (00:25→05:33)
[2020-07-24] MEDS: DUTASTERIDE 0.5 MG CAPSULE PO SCH (09:44)
[2020-07-24] MEDS: MAGNESIUM OXIDE 400 MG TABLET PO SCH (09:44)
[2020-07-24] MEDS: TAMSULOSIN 0.4 MG CAPSULE PO SCH (09:45)
[2020-07-24] MEDS: amLODIPine 10 MG TABLET PO SCH (09:45)
[2020-07-24] MEDS: PANTOPRAZOLE 40 MG TABLET PO SCH (09:45)
[2020-07-24] MEDS: ENOXAPARIN 40 MG/0.4 ML SYRINGE SUBCUT SCH (09:46)
[2020-07-24] MEDS: POLYETHYLENE GLYCOL POWDER 17 GM PACK PO SCH (09:51)
[2020-07-24] MEDS: ATORVASTATIN 40 MG TABLET PO SCH (20:17)
[2020-07-25] MEDS: TAMSULOSIN 0.4 MG CAPSULE PO SCH (09:10)
[2020-07-25] MEDS: POLYETHYLENE GLYCOL POWDER 17 GM PACK PO SCH (09:10)
[2020-07-25] MEDS: ENOXAPARIN 40 MG/0.4 ML SYRINGE SUBCUT SCH (09:10)
[2020-07-25] MEDS: MAGNESIUM OXIDE 400 MG TABLET PO SCH (09:10)
[2020-07-25] MEDS: DUTASTERIDE 0.5 MG CAPSULE PO SCH (09:10)
[2020-07-25] MEDS: amLODIPine 10 MG TABLET PO SCH (09:11)
[2020-07-25] MEDS: PANTOPRAZOLE 40 MG TABLET PO SCH (09:11)
[2020-07-25] MEDS: ATORVASTATIN 40 MG TABLET PO SCH (20:43)
[2020-07-26] MEDS: PANTOPRAZOLE 40 MG TABLET PO SCH (09:15)
[2020-07-26] MEDS: MAGNESIUM OXIDE 400 MG TABLET PO SCH (09:15)
[2020-07-26] MEDS: TAMSULOSIN 0.4 MG CAPSULE PO SCH (09:15)
[2020-07-26] MEDS: DUTASTERIDE 0.5 MG CAPSULE PO SCH (09:15)
[2020-07-26] MEDS: amLODIPine 10 MG TABLET PO SCH (09:15)
[2020-07-26] MEDS: ENOXAPARIN 40 MG/0.4 ML SYRINGE SUBCUT SCH (09:19)
[2020-07-26] MEDS: POLYETHYLENE GLYCOL POWDER 17 GM PACK PO SCH (09:20)
[2020-07-26] MEDS: ATORVASTATIN 40 MG TABLET PO SCH (20:56)
[2020-07-27] MEDS: ENOXAPARIN 40 MG/0.4 ML SYRINGE SUBCUT SCH (09:30)
[2020-07-27] MEDS: amLODIPine 10 MG TABLET PO SCH (09:30)
[2020-07-27] MEDS: PANTOPRAZOLE 40 MG TABLET PO SCH (09:30)
[2020-07-27] MEDS: TAMSULOSIN 0.4 MG CAPSULE PO SCH (09:30)
[2020-07-27] MEDS: DUTASTERIDE 0.5 MG CAPSULE PO SCH (09:30)
[2020-07-27] MEDS: MAGNESIUM OXIDE 400 MG TABLET PO SCH (09:30)
[2020-07-27] MEDS: POLYETHYLENE GLYCOL POWDER 17 GM PACK PO SCH (09:30)
[2020-07-27] MEDS: HYDROmorphone 2 MG/1 ML VIAL IV PRN (15:16)
[2020-07-27] MEDS: ATORVASTATIN 40 MG TABLET PO SCH (20:12)
[2020-07-28] MEDS: POLYETHYLENE GLYCOL POWDER 17 GM PACK PO SCH (09:51)
[2020-07-28] MEDS: DUTASTERIDE 0.5 MG CAPSULE PO SCH (09:52)
[2020-07-28] MEDS: ENOXAPARIN 40 MG/0.4 ML SYRINGE SUBCUT SCH (09:52)
[2020-07-28] MEDS: PANTOPRAZOLE 40 MG TABLET PO SCH (09:52)
[2020-07-28] MEDS: TAMSULOSIN 0.4 MG CAPSULE PO SCH (09:52)
[2020-07-28] MEDS: amLODIPine 10 MG TABLET PO SCH (09:52)
[2020-07-28] MEDS: MAGNESIUM OXIDE 400 MG TABLET PO SCH (09:52)
[2020-07-28 11:50] VITALS: BP 118/82
== END 2020-07-28 17:18 | disposition home health service (06) | DRG 330 ==
LOC: N.ED 11:23 → N.EDINP 13:45 → N.3E 15:41
PROVIDERS: ADMIT Surgery; ATTEND Surgery